=== PATIENT | male | born 1955 | race Two or more races ===

== ENCOUNTER 2017-09-13 05:45 | Day surgery (SDC) | payer OTHER ==
[~2017-09-13 05:45] MED LIST: CIPRO750 MG PO; CLONAZEPAM1 MG PO; DOCUSATE SODIU100 MG PO; METHYLPRED4 MG/DOSE- PO; NEURONTIN PO; PERCOCET 5/3251 TAB PO
[2017-09-13] MEDS ORDERED: PERCOCET 5-3251 EACH PO (10:40)
[2017-09-13] MEDS ORDERED: POLY119PG PO (10:40)
[2017-09-13] MEDS ORDERED: SURFAK240 MG PO (10:41)
== END 2017-09-13 16:00 | disposition home or self-care (01) ==
LOC: CIR.AMB 05:45
DX: K42.0 Umbilical hernia with obstruction, without gangrene (principal); K43.6 Other and unspecified ventral hernia with obstruction, without gangrene; K40.90 Unilateral inguinal hernia, without obstruction or gangrene, not specified as recurrent